=== PATIENT | female | born 1950 | race Caucasian/White ===

== ENCOUNTER 2018-11-01 00:31 | Outpatient (CLI) | payer BC, SELFPAY ==
--- NOTE | 2018-11-01 12:15 | DI.MAMMO_ITS ---
SYMPTOMS/DIAGNOSIS: SCREENING, Z12.31 MAMMOGRAMS: Mammograms were interpreted according to the usual protocol including computer analysis with CAD system, tomosynthesis and C view imaging. The breast tissue is of moderate radiodensity with scattered fibronodular densities bilaterally. There is no dominant mass. There are no suspicious calcifications and there has been no significant interval change when compared with prior images. SUMMARY: No evidence of malignancy, category 1. Yearly screening mammography is recommended. Breast density category B. SA ASSESSMENT OF FINDINGS: Negative. Category 1. Patient will receive a letter notifying them of these results. BI-RADS category B. There are scattered areas of fibroglandular density.
== END 2018-11-01 00:51 ==
PROVIDERS: PCP Internal Medicine; Visit Provider Nurse Practitioner Family
DX: Z12.31 Encounter for screening mammogram for malignant neoplasm of breast (principal)
CPT/HCPCS: 77063; 77067

== ENCOUNTER 2018-12-05 10:28 | Outpatient (REF) | payer BC, SELFPAY ==
[2018-12-05 13:16] LABS: Anion Gap 11.1 mmol/L (3-11); BUN 12 mg/dL (7-18); CO2 26.9 mmol/L (21.0-32.0); CREATININE 0.46 mg/dL (0.55-1.02); Calcium 9.2 mg/dL (8.5-10.1); Calculated LDL 165 mg/dL; Chloride 103 mmol/L (98-107); Cholesterol 254 mg/dL (50-200); Glucose 95 mg/dL (70-100); HDL Cholesterol 70 mg/dL (40-60); Potassium 3.8 mmol/L (3.5-5.1); Sodium 141 mmol/L (136-145); Triglyceride 96 mg/dL (30-150)
== END 2018-12-05 10:48 ==
LOC: NCHCN 10:28
PROVIDERS: PCP Internal Medicine; Visit Provider Internal Medicine
DX: I10 Essential (primary) hypertension (principal); F41.9 Anxiety disorder, unspecified; M79.10 Myalgia, unspecified site; Z00.00 Encounter for general adult medical examination without abnormal findings
CPT/HCPCS: 80048; 80061; 83721

== ENCOUNTER 2020-08-14 01:38 | Outpatient (CLI) | payer BC, SELFPAY ==
--- NOTE | 2020-08-14 09:48 | DI.RAD_ITS ---
EXAM: XR HIP PELVIS ADULT BL CLINICAL HISTORY: BILAT HIP OA,M16.0. TECHNIQUE: 2D digital imaging was performed. COMPARISON: No exams were available for comparison FINDINGS: No evidence of pelvic or hip fracture. There are significant osteoarthritic degenerative changes in both hip joints with joint space narrowing and degenerative subarticular cysts on both sides the join t. Findings are more severe on the right side. Moderate-severe on the left side. No other signific ant osseous findings. IMPRESSION: Bilateral hip joint osteoarthritis, more severe on the right side. DATA REPOSITORY: RADIATION DOSE DELIVERED:
== END 2020-08-14 01:58 ==
PROVIDERS: PCP Internal Medicine; Visit Provider Internal Medicine
DX: M16.0 Bilateral primary osteoarthritis of hip (principal)
CPT/HCPCS: 73521

== ENCOUNTER 2020-10-27 01:06 | Outpatient (CLI) | payer BC, SELFPAY ==
--- NOTE | 2020-10-27 09:40 | DI.MAMMO_ITS ---
Exam(s) MAMMO SCREENING EXAM: MAMMO SCREENING CLINICAL HISTORY: screening. TECHNIQUE: Bilateral full field digital CC and MLO mammographic images were obtained with 3D tomosyn thesis and utilizing computer aided detection (CAD). COMPARISON: Prior mammograms dating back to 2011, the most recent being October 2018. FINDINGS: There has been no significant change in appearance and distribution of the fibroglandular tissue. There are no obvious new spiculated masses nor malignant appearing microcalcification groups. There is no significant architectural distortion nor skin thickening-retraction. IMPRESSION: No radiographic evidence of malignancy. BI-RADS Category 1 - Negative Breast Density - Category B - Scattered areas of fibroglandular density Breast density Category C or D implies that the patient has dense breast tissue. Dense breast tissue can make it harder to find cancer on a mammogram. Dense breast tissue is also associated with an incr eased risk of breast cancer. This information about the result of the mammogram report was provided to the patient to raise their awareness. Use this report when you speak with the patient about their risks for breast cancer, which includes their family history. At that time, you may recommend additional screening tests (Ultrasoun d or MRI) as these tests may add significant information. A negative radiographic report should not delay biopsy if a dominant or clinically suspicious mass is present. Up to ten percent of cancers are not identified on mammography. A negative report may reinforce clinical impression. Adenosis and dense breasts may obscure an underlying neoplasm. False positive reports average 6 to 10%. Patient will receive a letter notifying them of these results.
== END 2020-10-27 01:26 ==
PROVIDERS: PCP Internal Medicine; Visit Provider Nurse Practitioner Family
DX: Z12.31 Encounter for screening mammogram for malignant neoplasm of breast (principal)
CPT/HCPCS: 77063; 77067

== ENCOUNTER 2020-11-18 16:58 | Outpatient (REF) | payer BC, SELFPAY ==
[2020-11-18 14:31] LABS: Anion Gap 10.4 mmol/L (3-11); BUN 16 mg/dL (7-18); CO2 27.6 mmol/L (21.0-32.0); CREATININE 0.5 mg/dL (0.55-1.02); Calcium 9.7 mg/dL (8.5-10.1); Chloride 103 mmol/L (98-107); Glucose 106 mg/dL (74-106); Sodium 141 mmol/L (136-145)
== END 2020-11-18 16:59 | disposition home or self-care (01) ==
LOC: NCHCN 16:58
PROVIDERS: PCP Internal Medicine; Visit Provider Internal Medicine
DX: I10 Essential (primary) hypertension (principal)
CPT/HCPCS: 80048

== ENCOUNTER 2021-01-05 09:45 | Outpatient (CLI) | payer BC, SELFPAY ==
--- NOTE | 2021-01-05 09:15 | DI.RAD_ITS ---
Exam(s) XR PELVIS AP EXAM: XR PELVIS AP CLINICAL HISTORY: right hip DJD. TECHNIQUE: 2D digital imaging was performed. COMPARISON: CR XR HIP PELVIS ADULT BL from 08/14/2020 FINDINGS: No fractures. Advanced osteoarthritic degenerative changes in the right hip again noted including ad vanced joint space narrowing and degenerative subarticular cysts on both sides the joint, similar to previous. Also significant degenerative changes in the opposite-left hip with advanced joint space narrowing wilburn periorly and degenerative subarticular cysts. IMPRESSION: As above. No radiographic change compared to 08/14/2020. DATA REPOSITORY: RADIATION DOSE DELIVERED:
== END 2021-01-05 09:46 | disposition home or self-care (01) ==
LOC: DIORS 09:45
PROVIDERS: PCP Internal Medicine; Visit Provider Physician Assistant
DX: M16.11 Unilateral primary osteoarthritis, right hip (principal)
CPT/HCPCS: 72170

== ENCOUNTER 2021-03-02 02:53 | Outpatient (CLI) | payer BC, SELFPAY ==
[2021-03-02 10:11] LABS: HCT 38.5 % (36.0-46.0); HGB 12.7 g/dL (11.2-15.7); MCH 31.4 pg (27.0-33.0); MCV 95.3 fL (80-95); MPV 8.6 fL (8.0-11.0); Platelet Count 226 10^3/uL (130-400); RBC 4.04 10^6/uL (3.93-5.22); RDW 11.9 % (11.7-14.6); RDW-SD 41.4 fL; WBC 4.93 10^3/uL (4.4-10.8)
[2021-03-02 11:11] LABS: Anion Gap 8.4 mmol/L (3-11); BUN 15 mg/dL (7-18); CO2 30.6 mmol/L (21.0-32.0); CREATININE 0.7 mg/dL (0.55-1.02); Calcium 9.5 mg/dL (8.5-10.1); Chloride 102 mmol/L (98-107); Glucose 96 mg/dL (74-106); Potassium 4.4 mmol/L (3.5-5.1); Sodium 141 mmol/L (136-145)
[2021-03-02 12:51] LABS: Source Nasal/Nares
[2021-03-02 20:55] LABS: COVID-19 PCR Negative (Negative)
== END 2021-03-02 02:54 | disposition home or self-care (01) ==
LOC: LBO 02:53
PROVIDERS: PCP Internal Medicine; Visit Provider Student in an Organized Health Care Education/Training Program
DX: M25.551 Pain in right hip (principal); M16.11 Unilateral primary osteoarthritis, right hip; Z20.822 Contact with and (suspected) exposure to COVID-19; Z01.818 Encounter for other preprocedural examination; Z01.812 Encounter for preprocedural laboratory examination
CPT/HCPCS: 36415; 80048; 85027; 86850; 86900; 86901; 87635

== ENCOUNTER 2021-03-02 03:11 | Outpatient (CLI) | payer BC, SELFPAY ==
--- NOTE | 2021-03-02 09:45 | RT.EKG_ITS ---
APPROVED REPORT Exam: Resting ECG Reason for Exam: surgery 03/04/21 Patient Location: O HR:69 bpm ECG Measurements Heart Rate 69 AXIS ND 165 P 61 QRSd 94 QRS 0 QT 409 T 40 QTc 439 Conclusion Sinus rhythm...normal P axis, V-rate 60- 99
== END 2021-03-02 03:12 | disposition home or self-care (01) ==
PROVIDERS: PCP Internal Medicine; Visit Provider Student in an Organized Health Care Education/Training Program
DX: Z01.810 Encounter for preprocedural cardiovascular examination (principal)
CPT/HCPCS: 93005; 93010

== ENCOUNTER 2021-03-04 05:59 | Day surgery (SDC) | payer BC, SELFPAY ==
[2021-03-04] VITALS (8 sets, daily range): BP systolic 83–146; BP diastolic 60–89; PULSE 62–80; RESP 10–18; TEMP 36.2–36.8; O2SAT 94–99; BMI 25.4
--- NOTE | 2021-03-04 05:07 | W.ANESPRE ---
General Info Date of Service Date Performed: 03/04/21 Height: 5 ft 3 in Weight: 65.317 kg Body Mass Index (BMI): 25.4 Surgical Procedure: Operation Date: 03/04/21 08:05 Proposed Procedures Side Surgeon p Hip Total Hip Anterior Right Mick Perez MD Meds Allergies and Home Medications Allergies Allergy/AdvReac Type Severity Reaction Status Date / Time Penicillins Allergy Intermediate UNSURE Verified 03/04/21 06:22 Home Medication Medication Instructions Recorded hydrochlorothiazide 12.5 mg PO DAILY tab-cap 04/21/17 clobetasol 0.05 % topical ointment 1 applic TOPICAL PRN #15 g 10/03/20 ibuprofen 200 mg tablet 600 mg PO Q6H PRN tab 12/12/20 melatonin 10 mg PO HS PRN 03/04/21 Current Visit Medications: Current Medications Generic Name Dose Route Start Last Admin Trade Name Freq PRN Reason Stop Dose Admin Acetaminophen 1,000 mg 03/04/21 06:00 Acetaminophen 500 Mg Tab PO 03/04/21 16:00 PREOP LEON Celecoxib 400 mg 03/04/21 06:00 Celecoxib 200 Mg Cap PO 03/04/21 16:00 PREOP LEON Tranexamic Acid 1,000 mg/ 60 mls @ 360 mls/hr 03/04/21 06:00 Sodium Chloride IV 03/04/21 16:00 PREOP LEON Ringer's Solution 1,000 mls @ 80 mls/hr 03/04/21 06:00 IV 04/02/21 23:59 INFUSION LEON Cefazolin Sodium/Dextrose 2 gm in 50 mls @ 100 mls/hr 03/04/21 06:00 Ancef Duplex IVPB 04/02/21 23:59 PREOP LEON IV Miscellaneous Supplies 1 each 03/04/21 06:00 Iv Access IV 04/02/21 23:59 DIRECTED LEON Sodium Chloride 0 ml 03/04/21 06:00 Normal Saline Flush 10 Ml Syr IV 04/02/21 23:59 PRN PRN Sodium Chloride 0 ml 03/04/21 06:00 Normal Saline 10 Ml Vial IJ 04/02/21 23:59 DIRECTED PRN Sterile Water 0 ml 03/04/21 06:00 Water,Injection,Sterile 10 Ml Vial IJ 04/02/21 23:59 DIRECTED PRN PFSH Active Problems Active Problems: Problem Status Onset Code Trigger finger, right ring finger M65.341 Osteoarthritis of left hip M16.12 Osteoarthritis of right hip M16.11 Diverticulosis Lichen sclerosus Hypertension Medical History Medical History Diverticulosis Hypertension Lichen sclerosus Surgical History Surgical History Colonoscopy - IV Sedation (09/21/16) Trigger finger, right ring finger Tobacco Smoking/Tobacco Use Status: Former Tobacco Use Tobacco: How many years used: 30 Alcohol Alcohol Intake: current Alcohol intake frequency: a few times a week Alcohol type: wine Substance Use Substance use: Never Substance use type: does not use Prental History History 2 Para 0 Hx # Term Pregnancies Multiple births Hx # Pregnancies Ectopic pregnancies AB induced Hx Number of Living Children AB spontaneous Vital Signs and Lab Results Vital Signs Comment Vital Signs Comment:: Temp Pulse Resp BP Pulse Ox 36.8 C 67 18 146/89 H 98 03/04/21 06:29 03/04/21 06:29 03/04/21 06:29 03/04/21 06:29 03/04/21 06:29 Lab Results Blood Type / Crossmatch: Patient ABO/Rh A Positive 03/02/21 10:05 03/02/21 Antibody Screen NEGATIVE 03/02/21 10:05 03/02/21 Complete Blood Count: White Blood Count 4.93 10^3/uL (4.4-10.8) 03/02/21 10:05 03/02/21 Red Blood Count 4.04 10^6/uL (3.93-5.22) 03/02/21 10:05 03/02/21 Hemoglobin 12.7 g/dL (11.2-15.7) 03/02/21 10:05 03/02/21 Hematocrit 38.5 % (36.0-46.0) 03/02/21 10:05 03/02/21 Platelet Count 226 10^3/uL (130-400) 03/02/21 10:05 03/02/21 Complete Metabolic Panel: Sodium Level 141 mmol/L (136-145) 03/02/21 10:05 03/02/21 Potassium Level 4.4 mmol/L (3.5-5.1) 03/02/21 10:05 03/02/21 Chloride Level 102 mmol/L (98-107) 03/02/21 10:05 03/02/21 Carbon Dioxide Level 30.6 mmol/L (21.0-32.0) 03/02/21 10:05 03/02/21 Blood Urea Nitrogen 15 mg/dL (7-18) 03/02/21 10:05 03/02/21 Creatinine 0.7 mg/dL (0.55-1.02) 03/02/21 10:05 03/02/21 Estimated GFR/1.73 m2 >= 60.00 (mL/min/1.73m2) 03/02/21 10:05 03/02/21 Calcium Level 9.5 mg/dL (8.5-10.1) 03/02/21 10:05 03/02/21 Glucose Level 96 mg/dL (74-106) 03/02/21 10:05 03/02/21 Liver Function Panel: No Data to Display Coagulation Panel: No Data to Display Cardiac Panel: No Data to Display Arterial Blood Gas: No Data to Display Venous Blood Gas: No Data to Display Pancreas Panel: No Data to Display Thyroid Panel: No Data to Display Infectious Disease: Coronavirus (COVID-19)(PCR) Negative (Negative) 03/02/21 10:30 03/02/21 Coronavirus 2019 Source Nasal/Nares 03/02/21 10:30 03/02/21 Blood Cultures: No Data to Display Toxicology Panel: No Data to Display Imaging and Studies Imaging and Studies EKG Summary: 02/2021: nsr Anesthesia Assessment and Plan Anesthesia History Personal History: No History of Anesthesia Complications Family History: No Family History of Anesthesia Complications Exercise Tolerance Exercise Tolerance: Metabolic Equivalents>4 Cardiac & Pulmonary Exam Cardiac Exam: Normal S1/S2 Heart Sounds Pulmonary Exam: Clear Bilateral Breath Sounds Airway Exam Known Difficult Airway: No Mallampati Class: 2 Mouth Opening: Normal (> 3cm) Thyromental Distance: Greater than 3 cm Neck Range of Motion: Full ROM Neck Circumference: Normal Teeth Condition: Normal Dentition ASA Classification ASA Score: ASA 2 Emergency Case?: No NPO Status NPO Status: NPO Clears >2 hours, Solids >8 hours Anesthesia Plan Resuscitation Status: Full Code Anesthesia Technique: Spinal Anesthesia Airway Planned: Natural Airway Monitors Used: Standard Monitors Preoperative Comments:: 70 yo female for VANCE. Sig PMHx: HTN (HCTZ), former smoker, occ EtOH. EKG 03/03/21: NSR. Plan: Spinal.
[2021-03-04] MEDS: Acetaminophen 500 MG TAB 1000 MG PO (06:48)
[2021-03-04] MEDS: Celecoxib 200 MG CAP 400 MG PO (06:48)
[2021-03-04] MEDS: Lactated Ringers 1,000 ML 80 ML IV (06:55)
--- NOTE | 2021-03-04 06:58 | W.PM.DSUDISC ---
Documented by User: SANJIV Harrison 03/04/21 07:04 Discharge Plan Disposition Patient Disposition: HOME Condition: Stable Discharge Details Reason For Visit: Right VANCE Attending Provider: Mick Perez Primary Care Provider: Long Larkin Home Meds and New Rx's Prescriptions: Continued clobetasol 0.05 % ointment 1 applic Topical PRN Qty: 15 RF: 1 hydrochlorothiazide 12.5 MG capsule 12.5 mg PO DAILY RF: 0 melatonin 5 mg Tablet,Chewable 10 mg PO HS PRNRF: 0 Discontinued ibuprofen 200 mg tablet 600 mg PO Q6H PRNRF: 0 No Action acetaminophen [Tylenol Extra Strength] 500 mg tablet 500 mg PO Q6H PRN (Reason: postop pain) Qty: 90 RF: 0 aspirin 81 mg tablet,delayed release (DR/EC) 81 mg PO BID Qty: 60 RF: 0 celecoxib [Celebrex] 200 mg capsule 200 mg PO BID Qty: 60 RF: 0 oxycodone 5 mg tablet 5 mg PO Q4H MDD 30 PRN (Reason: breakthrough pain) Qty: 18 RF: 0 pantoprazole [Protonix] 40 mg tablet,delayed release (DR/EC) 40 mg PO DAILY Qty: 30 RF: 0 Discharge Instructions Additional Instructions: Total Hip Discharge Instructions Activity: The most important activity is to walk. You should try to take short walks a few times a day. You have no restrictions on movement or positioning, but do not try to force what you do. You will find some stiffness and weakness with hip flexion (lifting your knee). Do not try to strengthen this too early, continue to practice walking and stairs and this will come. - Outpatient physical therapy can be helpful to help return you to a normal gait and improve your flexibility and strength. This can start around 2 weeks. For some patients, it?s not necessary. Usually this is determined at the time of discharge or at the first post-operative visit. - You should wear the DAVID hose on both legs for 2 weeks. Dressing: Keep the surgical dressing in place for at least one week. After the first week it may be removed and replace with light gauze and tape or nothing. It may get wet after 3 days but avoid soaking the dressing. If it gets wet, just lightly pat dry. It is important to always keep some gauze between skin folds, especially when you are sitting. Spend some time with the wound exposed when you are lying flat as the incision does wrinkle onto itself. Medications: - You should take Tylenol and an anti-inflammatory Celebrex as your primary pain control medications. Please Discontinue Ibuprofen while using Celebrex. If the Celebrex is too expensive or not covered, please call the office for another alternative (Advil/Ibuprofen or Naproxen/Aleve). - You have been prescribed a stronger pain medication Oxycodone for breakthrough pain, take as needed as prescribed. - You have also been prescribed a stomach acid reduction agent Pantoprozole to help reduce stomach acid and reflux. - You will be taking Aspirin 81mg twice a day for DVT prevention unless instructed otherwise. - If you have constipation you should take Colace or Miralax (both [id number]). It takes most people 3-4 days to have a bowel movement. Follow-up: 2 weeks If you have any acute concerns or questions, please do not hesitate to contact the office at [phone]. You may contact Dr. Perez with any questions after hours through the hospital at [phone] or on his cell phone at [phone]. Stand Alone Forms: Anesthesia Discharge Inst., Anes.Nerve Block Instructions Referrals: Mick Perez MD [ [facility] STAFF PHYSICIAN] - 03/19/21 10:30 am Equipment/Supplies: Walker Activity:: Activity as Tolerated Remove Dressings/Wound Care:: Do Not Remove Shower/Bathe:: 72 hours Diet:: As Tolerated Discharge Orders Discharge Orders: Discharge Order (Routine); Ordered 03/04/21 Ordered By: Claudia Manriquez DS: Diagnosis Discharge Diagnosis (1) Osteoarthritis of right hip: Status: Chronic Documented by User: Mick Perez MD 03/04/21 12:19 Discharge Plan Disposition Patient Disposition: HOME Condition: Stable Discharge Details Reason For Visit: Right VANCE Attending Provider: Mick Perez Primary Care Provider: Long Larkin Home Meds and New Rx's Prescriptions: Continued clobetasol 0.05 % ointment 1 applic Topical PRN Qty: 15 RF: 1 hydrochlorothiazide 12.5 MG capsule 12.5 mg PO DAILY RF: 0 melatonin 5 mg Tablet,Chewable 10 mg PO HS PRNRF: 0 Discontinued ibuprofen 200 mg tablet 600 mg PO Q6H PRNRF: 0 No Action acetaminophen [Tylenol Extra Strength] 500 mg tablet 500 mg PO Q6H PRN (Reason: postop pain) Qty: 90 RF: 0 aspirin 81 mg tablet,delayed release (DR/EC) 81 mg PO BID Qty: 60 RF: 0 celecoxib [Celebrex] 200 mg capsule 200 mg PO BID Qty: 60 RF: 0 oxycodone 5 mg tablet 5 mg PO Q4H MDD 30 PRN (Reason: breakthrough pain) Qty: 18 RF: 0 pantoprazole [Protonix] 40 mg tablet,delayed release (DR/EC) 40 mg PO DAILY Qty: 30 RF: 0 Discharge Instructions Additional Instructions: Total Hip Discharge Instructions Activity: The most important activity is to walk. You should try to take short walks a few times a day. You have no restrictions on movement or positioning, but do not try to force what you do. You will find some stiffness and weakness with hip flexion (lifting your knee). Do not try to strengthen this too early, continue to practice walking and stairs and this will come. - Outpatient physical therapy can be helpful to help return you to a normal gait and improve your flexibility and strength. This can start around 2 weeks. For some patients, it?s not necessary. Usually this is determined at the time of discharge or at the first post-operative visit. - You should wear the DAVID hose on both legs for 2 weeks. Dressing: Keep the surgical dressing in place for at least one week. After the first week it may be removed and replace with light gauze and tape or nothing. It may get wet after 3 days but avoid soaking the dressing. If it gets wet, just lightly pat dry. It is important to always keep some gauze between skin folds, especially when you are sitting. Spend some time with the wound exposed when you are lying flat as the incision does wrinkle onto itself. Medications: - You should take Tylenol and an anti-inflammatory Celebrex as your primary pain control medications. Please Discontinue Ibuprofen while using Celebrex. If the Celebrex is too expensive or not covered, please call the office for another alternative (Advil/Ibuprofen or Naproxen/Aleve). - You have been prescribed a stronger pain medication Oxycodone for breakthrough pain, take as needed as prescribed. - You have also been prescribed a stomach acid reduction agent Pantoprozole to help reduce stomach acid and reflux. - You will be taking Aspirin 81mg twice a day for DVT prevention unless instructed otherwise. - If you have constipation you should take Colace or Miralax (both [id number]). It takes most people 3-4 days to have a bowel movement. Follow-up: 2 weeks If you have any acute concerns or questions, please do not hesitate to contact the office at [phone]. You may contact Dr. Perez with any questions after hours through the hospital at [phone] or on his cell phone at [phone]. Stand Alone Forms: Anesthesia Discharge Inst., Nirav.Nerve Block Instructions Referrals: Mick Preez MD [ [facility] STAFF PHYSICIAN] - 03/19/21 10:30 am Equipment/Supplies: Walker Activity:: Activity as Tolerated Remove Dressings/Wound Care:: Do Not Remove Shower/Bathe:: 72 hours Diet:: As Tolerated Discharge Orders Discharge Orders: Discharge Order (Routine); Ordered 03/04/21 Ordered By: Claudia Manriquez
--- NOTE | 2021-03-04 07:00 | DI.RAD_ITS ---
Exam(s) XR HIP RT IN OR EXAM: XR HIP RT IN OR CLINICAL HISTORY: Osteoarthritis of right hip TECHNIQUE: 2D and realtime digital imaging was performed. CONTRAST MATERIAL: Refer to procedure report. COMPARISON: CR XR PELVIS AP from 01/05/2021 CR XR PELVIS AP from 01/05/2021 FINDINGS: Fluoroscopy was provided for Dr. Perez during the performance of a right total hip replacement. Please refer to the procedure report for complete details. Ka,r=3.14 mGy IMPRESSION: RADIATION DOSE DELIVERED:
--- NOTE | 2021-03-04 07:14 | HPE_ITS ---
Date of service: 03/04/21 Time of Service: 07:14 Assessment and Plan Assessment and plan (1) Osteoarthritis of right hip: Status: Chronic Assessment and plan: Rachel is a 70-year-old active female who has severe arthritis of the right hip. She has failed a host of nonoperative treatment and is here today for total hip replacement. Please see previous notes for complete details of all the nonoperative treatments employed as well as more complete discussion of the surgery itself. Once again this morning I reviewed hip replacement with her. I had a long discussion in regards to surgical replacem ent of the hip. I went over in detail the possible complications of hip replacement. These include but are not limited to bleeding, infection, pain, stiffness, weakness, damage to nerves (especially the lateral femoral cutaneous nerve), damage to vessels, damage to muscle and tendon, fracture, leg length inequality, wound healing complications, instability, dislocation, and blood clot. Questions were answered. I again expressed that this is a surgery to improve functional quality of life. After a review of the presented information and risks, Rachel desired to proceed. Qualifiers: Osteoarthritis type: primary Qualified Code(s): M16.11 - Unilateral primary osteoarthritis, right hip History of Present Illness History of Present Illness Chief Complaint: Right hip DJD Narrative: Rachel is a 70-year-old who has known hip arthritis about the right hip. She has been seen previously for this right hip and treated with a host of nonoperative treatments. She has been considering hip replacement for some time and now desires to proceed. She was previously scheduled and seen in anticipation for this with a history of physical performed January 05. Please reference that history and physical for any other details but there has been no change. She is now ready for a replaced on the right side today. She denies any sick contacts. She has tested negative for COVID-19. She denies chest pain or shortness of breath. Review of Systems All systems reviewed & are unremarkable except as noted in HPI and below PFSH Medical History Diverticulosis Hypertension Lichen sclerosus Surgical History Colonoscopy - IV Sedation (09/21/16) Trigger finger, right ring finger Family History Father Heart disease Other Osteoporosis Social History Smoking/Tobacco Use Status: Former Tobacco Use Quit Date: 10/13/05 Tobacco: How many years used: 30 Smoking risk assessment performed?: Yes Alcohol Intake: current Alcohol Intake frequency: a few times a week Alcohol type: wine Drug use: Never Substance use type: does not use Current gender identity: female Do you feel safe at home: Yes Do you feel safe in your relationship?: Yes History History 2 Para 0 Hx # Term Pregnancies Multiple births Hx # Pregnancies Ectopic pregnancies AB induced Hx Number of Living Children AB spontaneous Meds Allergies and Home Medications Allergies Allergy/AdvReac Type Severity Reaction Status Date / Time Penicillins Allergy Intermediate UNSURE Verified 03/04/21 06:22 Home Medications Medication Instructions Recorded Confirmed Type hydrochlorothiazide 12.5 mg PO DAILY tab-cap 04/21/17 03/04/21 History clobetasol 0.05 % topical ointment 1 applic TOPICAL PRN #15 g 10/03/20 03/02/21 Rx acetaminophen [Tylenol Extra 500 mg PO Q6H PRN #90 tab 03/04/21 Rx Strength] aspirin 81 mg PO BID #60 tab 03/04/21 Rx celecoxib [Celebrex] 200 mg PO BID #60 cap 03/04/21 Rx melatonin 10 mg PO HS PRN 03/04/21 03/04/21 History oxycodone 5 mg PO Q4H PRN #18 tab 03/04/21 Rx pantoprazole [Protonix] 40 mg PO DAILY #30 tab 03/04/21 Rx Exam Const General: cooperative, healthy appearing, comfortable and no acute distress Resp Auscultation: clear to auscultation bilaterally Cardio Rate: regular rate Rhythm: regular rhythm Results Last Vital Signs Temp 36.8 C 03/04/21 06:29 Pulse 67 03/04/21 06:29 Resp 18 03/04/21 06:29 BP 146/89 H 03/04/21 06:29 Pulse Ox 98 03/04/21 06:29
[2021-03-04] MEDS: ceFAZolin 2 GM/50 ML BAG IVPB (07:50)
[2021-03-04] MEDS: Ketorolac 30 MG/ML VIAL (09:10)
[2021-03-04] MEDS: Bupivacaine 0.25% Pres-Free 30 ML VIAL (09:10)
[2021-03-04] MEDS: oxyCODONE 5 MG TAB PO (10:22)
--- NOTE | 2021-03-04 10:22 | ROE_ITS ---
Date of service: 03/04/21 Time of Service: 09:22 Operative Note Operative Note DATE OF PROCEDURE: 03/04/21 PRE-OP DIAGNOSIS: Right Hip Osteoarthritis POST-OP DIAGNOSIS: same PROCEDURE: Right Anterior Total Hip Arthroplasty with Intraoperative Navigation SURGEON: Mick Perez INDUCTION MACHINE OPERATOR: Claudia Manriquez ANESTHESIA TYPE: Spinal Refer to Anesthesia Record ESTIMATED BLOOD LOSS: 200 PATHOLOGY: none sent TOURNIQUET TIME: 0 COMPLICATIONS: None Patient was transported to: PACU Patient's condition: stable Implants: 1. Depuy [place] Acetabular Component, 48mm 2. Depuy Acetabular Liner, [id number] 3. Depuy Corail Standard Collared Femoral Stem, Size 11 4. Depuy Altrx Ceramic Femoral Head, Size 32+5mm Indications: I have seen Rachel in clinic for symptoms of hip arthritis, confirmed with radiographic findings. She has exhausted nonoperative methods and was having significant limitations in daily function and desired better function and less pain. I discussed the technical details of a hip replacement. I explained the risks of the procedure to include, but not limited to, bleeding, infection, pain, stiffness, fracture, damage to nerves and vessels, damage to muscles and tendons, loosening, instability, leg length inequality, need for repeat procedure, blood clot and cardiopulmonary demise. Despite these risks, Rachel elected to proceed. Findings: There was significant signs of arthritis throughout the hip. There was deformity of the femoral head. There was a large floor osteophyte. Procedure Description: Rachel was greeted in the preoperative holding area where the correct side was identified and marked. The consent was reviewed with the patient and signed. The history and physical was updated. All questions were answered. She was taken back to the operating room. A spinal anesthestic was then administered. The feet were wrapped with cast padding and Coban and then placed into the boot liners and then into the boots. Care was taken to protect the skin and make sure the heels were fully down and the boots were stable. The patient was then positioned onto the HANA table. Both legs were held in a neutral position. SCDs were applied. The patient was then slid down onto a peroneal post. Prophylactic antibiotics in the form of Cefazolin were administered. 1g of Tranxemic Acid was given intravenously within 30 minutes of incision. The right leg was then prepped with Chloraprep and draped in a standard fashion. A second prep with Chloraprep was performed prior to placement of a shower-curtain type drape with Iodine impregnated skin protection. A timeout to confirm correct identity, side and site, procedure, allergies, anesthesia, and medical concerns was performed. An obliquely oriented incision was made starting lateral to the ASIS and running distal over the Tensor Fascia Jazzmine (TFL) muscle belly toward the fibular head, approximately 10cm. The skin and soft tissue was dissected sharply, through Adina?s fascia, and to the fascia of the TFL. With the fascia and superior border of the IT band identified, the fascia was incised with a new knife just above any perforators from the IT band. The TFL muscle belly was bluntly dissected away from the fascia and moved laterally. The fat between TFL and rectus was identified to ensure the dissection was not within the TFL. Blunt dissection created space between abductors and the capsule and retractor was placed over the lateral femoral neck. The fibers of the rectus femoris tendon were identified and these were freed from the anterior capsule. A second cobra retractor was placed around the medial femoral neck. The TFL was further retracted laterally to show the deep fascia. Careful dissection through this layer identified three main crossing vessels of the lateral femoral circumflex. These were cauterized in multiple locations and then cut without any noticeable bleeding. The TFL was further released bluntly from the deep fascia to expose anterior hip capsule and fat The Russell orthopaedic retractor was then placed beneath the TFL and against sartorius and medial soft tissues to protect and retract the soft tissues. A T-capsulotomy was then performed starting at the superior lateral acetabulum and moving distally to the intertrochanteric ridge. These capsular flaps were tagged with a No. 1 Ethibond and elevated from within. The capsular flaps were released to the shoulder of the lateral neck and to the lesser trochanter to give excellent visualization of the proximal femur. A neck osteotomy was performed using an oscillating saw based on preoperative templates. This cut started in the shoulder and of the lateral neck and exited medially. The saw was at all times directed medially to avoid injury to the greater trochanter. Gross traction was applied to the leg and the osteotomy opened. The femoral head was removed with a corkscrew, making sure to protect the TFL on its exit. Traction was released after head removal. This was measured on the back table to determine the starting reamer size. Portions of the rectus obscuring visualization were minimally elevated off the superior acetabulum. An anterior retractor was placed over the anterior wall between capsule and labrum and attached to the Gripper retraction system. The femur was rotated to 90 degrees and medial capsule was fully released until the lesser trochanter was palpable and visible; the femur was returned to 30 degrees. A posterior retractor was placed similarly between capsule and labrum. This provided excellent visualization. The contents of the cotyloid fossa were removed with electrocautery and the labrum was removed with a knife. There was a notable floor osteophyte. There was significant chondromalacia of the superior acetabulum. Acetabular reaming began with a 44mm reamer. This first reaming was directed anterior to posterior and medial to get down to the true floor. This was inspected and reamed until the true floor was reached. The anterior retractor was then released and entry and exit was provided by traction on the capsular flaps. I then reamed sequentially up to a 48mm reamer where good fit was obtained. The larger reamers were oriented based on anatomical reference of the anterior and lateral beasley to ensure proper abduction and anteversion. Positioning and size was confirmed with the fluoroscopy. A 48mm Depuy [place] acetabular component was selected. The acetabulum was reamed around the periphery with the selected acetabular size to prevent a rim fit. The deep tissues were irrigated. The acetabular component was then impacted in a position of about 40-45 degrees of abduction and 15-20 degrees of anteversion, using the patient?s anatomy as the ultimate landmark. Fluoroscopy was used to confirm this. There was excellent registered nurse nursery of the acetabular component and the inserting handle was removed. The acetabular liner, Depuy [id number] polyethylene liner, was inserted and lined up with the tines of the acetabular component. There was no soft tissue interposition. The liner was then impacted into position and confirmed to be well-seated. A portion of the valentino-articular cocktail was then injected around the acetabulum into the capsule and periosteum. This cocktail consisted of 50cc of 0.25% Bupivicaine and 20cc of Exparel and 30mg of Ketorolac. The leg was rotated to 120 degrees. Any remaining medial capsule was released until the lesser trochanter was easily palpable. A retractor was placed medially. The lateral capsule was further released into the shoulder to allow access to the greater trochanter. A Fowler retractor was placed over the greater trochanter which allowed the trochanter to flip in front of the capsule for excellent exposure. The leg was brought down into maximal extension and 20 degrees of adduction while ensuring there was no impingement on the acetabulum. Any remnant capsule within the trochanter was released. Piriformis and obturator externis were identified and protected. There was excellent access to the proximal femur. The lateral neck remnant was removed with a rongeur. A blunt canal probe was used to identify the canal and trajectory for later broaching. A box osteotome initiated the broach course. A small curved rasp and a curved curette were used to work laterally. Broaching then began with a size 8 Corail broach. This was inserted manually around the trochanter and into the canal before mallet blows. The broach was seated to a few millimeters below the cut level based on the neck cut and the preoperative template. Sequential broaching was continued with the Scroll.inse pneumatic broaching device until a tight fit was obtained with good rotational control of the femur. A trial short neck was inserted along with a +5 trial head. The leg was brought out of extension and adduction and then reduced with traction and internal rotation. The leg was stable anteriorly in a position of 30 degrees of extension and 90 degrees of external rotation. Fluoroscopy was used to ensure there was no fracture and the stem was seated well. Leg lengths were checked with an AP pelvis and pelvic reference points. Cubito navigation system was used to confirm appropriate positioning and leg length and offset. This seemed to undershoot the leg length and total offset. Thus going to a standard neck improved this. Once content with the desired offset and leg lengths, the leg was brought back into extension, external rotation and adduction. The periosteum and surrounding tissue was injected with remaining portion of the valentino-articular cocktail. The proximal femur was irrigated as well as the deep tissues. The Depuy [place] standard collared stem, size 11, was then manually inserted into the proximal femur making sure to control rotation. It was then malleted into position with light blows, giving breaks to allow bone expansion and decrease risk of fracture. The selected Depuy Altrx Ceramic Head, size 32+5mm, was then placed onto the clean and dry trunnion and secured with impaction onto the tapered fit. The leg was brought back out of extension and adduction and reduced with traction and internal rotation. Stability was confirmed with no shuck at 90 degrees of external rotation and 30 degrees of extension. No impingement through range of motion arc. Final x-ray images were obtained with fluoroscopy to confirm adequate positioning and no intraoperative fracture. The deep tissues were thoroughly irrigated with Irrisept chlorhexadine solution. The capsule was then reapproximated with the previously placed Ethibond sutures. The TFL fascia was finally closed with a No. 2 Stratafix, barbed suture. Deep tissues were then reapproximated with 0 Vicryl and a running 2-0 Vicryl. The skin was closed with a running 4-0 Monocryl in a subcuticular fashion. This was reinforced with skin glue. A Mepilex silver dressing was applied. At the end of the case, all counts were correct. Rachel was transferred to the hospital bed without difficulty and suffering no apparent complication. Rachel has a good prognosis. Physical therapy will start today and without restrictions, weight-bearing as tolerated. Aspirin 81mg BID will be used for DVT prophylaxis.
--- NOTE | 2021-03-04 11:42 | IN_ITS ---
Date of service: 03/04/21 Time of Service: 11:42 PT Notes Visit Reasons: Right [facility] Physical Therapy Day Surgery Initial Evaluation Date: 03/04/2021 Referring Doctor: SANJIV Harrison PT Orders: PT CONSULT: Status post Ortho surgery Precautions: WBAT on right LE with AD. Patient Profile/Admitting Diagnosis: Nkechi a 70-year-old female with primary osteoarthritis of the right hip and is status post right anterior total hip arthroplasty on postoperative day 0. PMHX: Medical History Diverticulosis Hypertension Lichen sclerosus Surgical History Colonoscopy - IV Sedation (09/21/16) Trigger finger, right ring finger Social History/Home Situation: Lives with at home with 2 steps to enter with one rail on 1 side. Set of spiral staircase leading to bedroom their house. Independent with all mobility ADLs prior to surgery. Equipment Owned/DME: FWW Subjective: Reports positional pain at 3?4/10 at rest and with weight bearing. But of mild dizziness that resolved after a few minutes. Objective: General Observation: Mepilex Ag over surgical incision. TEDS in B legs. Mental Status: Oriented x 4 Pain: 3?4/10 pain in the right hip ROM: Right Lower Extremity: Hip flexion WFL. Hip abduction WFL. Knee flexion WFL. Ankle dorsiflexion WFL. Ankle plantarflexion WFL. Left Lower Extremity: Hip flexion WFL. Hip abduction WFL. Knee flexion WFL. Ankle dorsiflexion WFL. Ankle plantarflexion WFL. Strength: Right Lower Extremity: Hip flexors 4/5. Hip abductors 4/5. Knee flexors 5/5. Knee extensors 4/5. Ankle dorsiflexors 5/5. Ankle plantarflexors 5/5. Left Lower Extremity:Hip flexors 5/5. Hip abductors 5/5. Knee flexors 5/5. Knee extensors 5/5. Ankle dorsiflexors 5/5. Ankle plantarflexors 5/5. Sensation: Intact as to pain and light pressure in bilateral lower extremities Bed Mobility/Transfers: Supine to sit standby assist Sit to stand standby assist Stand to sit standby assist Bed to chair standby assist Gait: Instructed patient on level surface ambulation 100 feet using front wheel walker with gait pattern requiring standby assist. Reported 3?4/10 that did not limit ambulation distance. Initially reported mild dizziness but resolved eventually. Balance: Static Sitting: Normal Dynamic Sitting: Normal Static Standing: Fair Dynamic Standing: Fair Special Tests: Mobility Limitations Standardized Measure [facility] AM-PAC 6 clicks Basic Mobility Inpatient Short Form: Raw Score: 23 CMS Score: 11% deficit Informed Consent/Education: Patient instructed in purpose of PT consult. Packet containing VANCE exercise protocol has been given to patient. Education and training on initial set of exercises that can be done at home have been completed with patient. Assessment: Rachel requires the use of a FWW for all mobility ADL performance to reduce fall risk and maximize independence at home. Patient presents with clinical signs and symptoms consistent with current/admitting diagnoses that have resulted to mobility limitations, gait instability, generalized weakness, and impairment of motor control as demonstrated by the following impairment level findings: 1. Decreased strength to right hip major muscle groups 2. Impaired standing balance 3. Limitation of joint range of motion in left knee Impairments are contributing to the following functional limitations: 1. Inability to safely ambulate without assistive device 2. Increase completion time for mobility ADL performance 3. Increased fall risk Patient is assessed as a 27109 moderate complexity based on the following: History: 70-year-old female with impairment level findings, functional limitations, and past medical history as indicated above Examination: Demonstrable impairment in strength, balance, and mobility level with underlying impairments and functional limitations as documented above Presentation: Evolving Decision Makin moderate complexity Goals: N/A. PT evaluation and 1-2 treatment sessions only for functional mobility training using recommended AD and for HEP instruction. Plan of Care/Treatment Plan: N/A. PT evaluation and 1-2 treatment session only for functional mobility training using recommended AD and for HEP instruction. DISCHARGE RECOMMENDATIONS: Home when medically cleared by orthopedics. To facilitate return to independent community ambulation without an assistive device. TREATMENT CODE/TIME: 37460 x 20 minutes, 51851 x 18 minutes beginning at 11:42 AM. Thank you for the opportunity to participate in the care of this patient. Ana Arriaga PT, DPT, CLT [facility] [place], [place]
--- NOTE | 2021-03-04 14:05 | W.ANESPOSTOP ---
Postoperative Evaluation Date, Time and Location Date Performed: 03/04/21 Time Performed: 09:50 Patient Location: PACU Vital Signs Most Recent Imported Vital Signs: Most Recent Vital Signs Temp Pulse Resp BP Pulse Ox 36.2 C L 66 18 138/82 97 03/04/21 11:20 03/04/21 11:20 03/04/21 11:20 03/04/21 11:20 03/04/21 11:20 Pain Score Most Recent Pain Score: Most Recent Pain Score Pain Level 4 03/04/21 11:20 Assessment Mental Status: Awake (Alert & Oriented to Patient Baseline) Airway and Respiratory Function: Patent airway with normal (patient baseline) respiratory exam Cardiovascular Function: Hemodynamically Stable Hydration Status: Adequately Hydrated Nausea & Vomiting: No Nausea or Vomiting Pain: Pain is tolerable per patient Peripheral Nerve Block: Regional nerve block not resolved at time of post operative discharge
== END 2021-03-04 12:55 | disposition home or self-care (01) ==
PROVIDERS: PCP Internal Medicine; Visit Provider Student in an Organized Health Care Education/Training Program
PROC: (CPT 27130; principal; 2021-03-04 07:45)
DX: M16.11 Unilateral primary osteoarthritis, right hip (principal)
CPT/HCPCS: 27130; 20985; 97162; 97530; 73501; J0690; J1100; J1885; J2001; J2250; J2405; J2704

== ENCOUNTER 2021-03-19 15:07 | Outpatient (CLI) | payer BC, SELFPAY ==
--- NOTE | 2021-03-19 10:30 | DI.RAD_ITS ---
Exam(s) XR HIP RT COMPLETE AP PELVIS EXAM: XR HIP RT COMPLETE AP PELVIS CLINICAL HISTORY: 1st post op R VANCE. TECHNIQUE: 2D digital imaging was performed. COMPARISON: CR XR PELVIS AP from 01/05/2021 FINDINGS: Satisfactory position alignment of components of the recently placed right hip prosthesis. No fractu re or loosening evident. Significant degenerative changes are again noted in the opposite-left hip. IMPRESSION: DATA REPOSITORY: RADIATION DOSE DELIVERED:
== END 2021-03-19 15:08 | disposition home or self-care (01) ==
LOC: DIORS 15:07
PROVIDERS: PCP Internal Medicine; Referring Provider Internal Medicine; Visit Provider Student in an Organized Health Care Education/Training Program
DX: Z96.641 Presence of right artificial hip joint (principal); Z47.1 Aftercare following joint replacement surgery; M16.12 Unilateral primary osteoarthritis, left hip
CPT/HCPCS: 73502

== ENCOUNTER → 2021-12-24 00:22 | Outpatient (CLI) | payer BC, SELFPAY ==
--- NOTE | 2021-12-24 | DI.DEXA_ITS ---
Exam(s) XR DEXA BONE DENSITY W/WO DEMAR EXAM: XR DEXA BONE DENSITY W/WO DEMAR CLINICAL HISTORY: OSTEOPENIA, M85.80 TECHNIQUE: Routine DEXA evaluation of the lumbar spine, hip, or forearm. COMPARISON: Prior DEXA scan March 2017 FINDINGS: Performed on a [employer] unit. Lateral image: No compression fracture evident. Lumbar Spine total T-score: -1.8 . Prior 2017 reading was -1.4. Hip total T-score:-1.9. Prior 2017 reading was -1.6. Independent reading at the level of the femoral neck yields at T-score of -1.7. Forearm total T-score: -1.5 IMPRESSION: Bone mineral density measures in the osteopenia range. Fracture risk is moderate. Note: Any spine fracture indicates 5x risk for subsequent spine fracture and 2x risk for subsequent h ip fracture. World Health Organization criteria for BMD interpretation classify patients: Normal...... T- Score at or above -1.0 Osteopenic... T- Score between -1.0 and -2.5 Osteoporosis... T-Score at or below -2.5
== END ==
PROVIDERS: PCP Internal Medicine; Visit Provider Internal Medicine
DX: Z13.820 Encounter for screening for osteoporosis (principal); M85.89 Other specified disorders of bone density and structure, multiple sites
CPT/HCPCS: 77080

== ENCOUNTER 2022-01-11 14:18 | Outpatient (CLI) | payer BC, SELFPAY ==
--- NOTE | 2022-01-11 13:52 | DI.RAD_ITS ---
Exam(s) XR HIP RT COMPLETE AP PELVIS EXAM: XR HIP RT COMPLETE AP PELVIS CLINICAL HISTORY: ANNUAL F/U R VANCE. TECHNIQUE: 2D digital imaging was performed. Two images were obtained. AP, lateral and oblique view s were obtained. COMPARISON: CR XR HIP RT COMPLETE AP PELVIS from 03/19/2021 FINDINGS: BONES: There are stable post operative changes present. No fracture or dislocation. JOINTS: The orthopedic hardware is in good position. Stable degenerative changes in the left hip. SOFT TISSUE: Normal. IMPRESSION: Stable postoperative changes. DATA REPOSITORY: RADIATION DOSE DELIVERED:
== END 2022-01-11 14:19 | disposition home or self-care (01) ==
LOC: DIORS 14:19
PROVIDERS: PCP Internal Medicine; Referring Provider Internal Medicine; Visit Provider Student in an Organized Health Care Education/Training Program
DX: Z96.651 Presence of right artificial knee joint (principal)
CPT/HCPCS: 73502

== ENCOUNTER → 2022-02-02 00:53 | Outpatient (CLI) | payer BC, SELFPAY ==
--- NOTE | 2022-02-02 08:30 | DI.MAMMO_ITS ---
Exam(s) MAMMO SCREENING EXAM: MAMMO SCREENING CLINICAL HISTORY: screening. TECHNIQUE: Bilateral full field digital CC and MLO mammographic images were obtained with 3D tomosyn thesis and utilizing computer aided detection (CAD). COMPARISON: Prior mammograms were reviewed, the most recent being October 2020.. FINDINGS: There has been no significant change in the appearance and distribution of the fibroglandular tissue. There are no CAD designations. There are no new spiculated masses nor malignant appearing microcalcification groups. There is no significant architectural distortion nor skin thickening-retraction. IMPRESSION: No radiographic evidence of malignancy. BI-RADS Category 1 - Negative Breast Density - Category B - Scattered areas of fibroglandular density Breast density Category C or D implies that the patient has dense breast tissue. Dense breast tissue can make it harder to find cancer on a mammogram. Dense breast tissue is also associated with an incr eased risk of breast cancer. This information about the result of the mammogram report was provided to the patient to raise their awareness. Use this report when you speak with the patient about their risks for breast cancer, which includes their family history. At that time, you may recommend additional screening tests (Ultrasoun d or MRI) as these tests may add significant information. A negative radiographic report should not delay biopsy if a dominant or clinically suspicious mass is present. Up to ten percent of cancers are not identified on mammography. A negative report may reinforce clinical impression. Adenosis and dense breasts may obscure an underlying neoplasm. False positive reports average 6 to 10%. Patient will receive a letter notifying them of these results.
== END ==
PROVIDERS: PCP Internal Medicine; Visit Provider Nurse Practitioner Family
DX: Z12.31 Encounter for screening mammogram for malignant neoplasm of breast (principal)
CPT/HCPCS: 77063; 77067

== ENCOUNTER 2022-05-24 03:22 | Outpatient (CLI) | payer BC, SELFPAY ==
[2022-05-24 12:45] LABS: HCT 37.7 % (36.0-46.0); HGB 12.6 g/dL (11.2-15.7); MCH 31.5 pg (27.0-33.0); MCHC 33.4 % (32.0-36.0); MCV 94 fL (80-95); Platelet Count 205 10^3/uL (130-400); RDW 11.9 % (11.7-14.6); RDW-SD 41.4 fL; WBC 5.21 10^3/uL (4.4-10.8)
[2022-05-24 13:14] LABS: Anion Gap 7.6 mmol/L (3-11); BUN 13 mg/dL (7-18); CO2 30.4 mmol/L (21.0-32.0); CREATININE 0.6 mg/dL (0.55-1.02); Calcium 9.9 mg/dL (8.5-10.1); Chloride 101 mmol/L (98-107); Glucose 91 mg/dL (74-106); Potassium 3.4 mmol/L (3.5-5.1); Sodium 139 mmol/L (136-145)
== END 2022-05-24 03:23 | disposition home or self-care (01) ==
LOC: LBO 03:22
PROVIDERS: PCP Internal Medicine; Visit Provider Student in an Organized Health Care Education/Training Program
DX: M16.12 Unilateral primary osteoarthritis, left hip (principal); Z01.818 Encounter for other preprocedural examination
CPT/HCPCS: 36415; 80048; 85027

== ENCOUNTER 2022-06-01 08:21 | Day surgery (SDC) | payer BC, SELFPAY ==
[2022-06-01] VITALS (9 sets, daily range): BP systolic 104–164; BP diastolic 60–109; PULSE 58–70; RESP 14–20; TEMP 36.2–36.6; O2SAT 94–99; BMI 25.9
--- NOTE | 2022-06-01 09:13 | W.PM.DS.N ---
Date of service: 06/01/22 Time of Service: 12:38 Discharge Plan Disposition Patient Disposition: Home Condition: Good Discharge Details Reason For Visit: Left hip DJD Attending Provider: Mick Perez Primary Care Provider: Long Larkin Home Meds and New Rx's Prescriptions: New acetaminophen 500 mg tablet 500 mg PO Q6H PRN (Reason: pain) Qty: 60 2RF aspirin 81 mg tablet,delayed release (DR/EC) 81 mg PO BID 30 Days Qty: 60 0RF celecoxib [Celebrex] 200 mg capsule 200 mg PO BID PRNQty: 60 0RF Rx Instructions: Take one tablet twice daily for pain and inflammation docusate sodium [Colace] 100 mg capsule 100 mg PO BID Qty: 30 0RF pantoprazole 40 mg tablet,delayed release (DR/EC) 40 mg PO DAILY 14 Days Qty: 14 0RF oxycodone 5 mg tablet 5 mg PO Q6H PRN (Reason: severe post-operative pain) Qty: 12 0RF Rx Instructions: Take one tablet up to every 6 hours as needed for severe pain Continued Gummies Children Multivitamin Tablet,Chewable 1 tab PO BID hydrochlorothiazide 12.5 MG capsule 12.5 mg PO DAILY melatonin 5 mg Tablet,Chewable 10 mg PO HS PRN Discharge Instructions Additional Instructions: Total Hip Discharge Instructions Activity: The most important activity is to walk. You should try to take short walks a few times a day. You have no restrictions on movement or positioning, but do not try to force what you do. You will find some stiffness and weakness with hip flexion (lifting your knee). Do not try to strengthen this too early, continue to practice walking and stairs and this will come. - Outpatient physical therapy can be helpful to help return you to a normal gait and improve your flexibility and strength. This can start around 2 weeks. For some patients, it?s not necessary. Usually this is determined at the time of discharge or at the first post-operative visit. - You should wear the DAVID hose on both legs for 2 weeks. Dressing: Keep the surgical dressing in place for at least one week. After the first week it may be removed and replace with light gauze and tape or nothing. It may get wet after 3 days but avoid soaking the dressing. If it gets wet, just lightly pat dry. It is important to always keep some gauze between skin folds, especially when you are sitting. Spend some time with the wound exposed when you are lying flat as the incision does wrinkle onto itself. Medications: - You should take Tylenol and an anti-inflammatory Celebrex as your primary pain control medications. If the Celebrex is too expensive or not covered, please call the office for another alternative (Advil/Ibuprofen or Naproxen/Aleve). - You have been prescribed a stronger pain medication Oxycodone for breakthrough pain, take as needed as prescribed. - You have also been prescribed a stomach acid reduction agent Pantoprozole to help reduce stomach acid and reflux. - You will be taking Aspirin 81mg twice a day for DVT prevention unless instructed otherwise. - If you have constipation you should take Colace (which has been prescribed) or Miralax (which is available for purchase [id number]). It takes most people 3-4 days to have a bowel movement. Follow-up: 2 weeks If you have any acute concerns or questions, please do not hesitate to contact the office at [phone]. You may contact Dr. Perez with any questions after hours through the hospital at [phone] or on his cell phone at [phone]. Referrals: Mick Perez MD [ [facility] STAFF PHYSICIAN] - Equipment/Supplies: Walker Activity:: Activity as Tolerated Remove Dressings/Wound Care:: Do Not Remove Shower/Bathe:: Cover Diet:: As Tolerated DS: Summary Time Spent with Patient providing and/or coordinating discharge services: Less than 30 minutes Status at Discharge Functional status at discharge: uses cane/walker Overall status at discharge: patient is progressing back to baseline Mental Status: mental status grossly normal Speech and Movement: speech and movement normal Mood: congruent mood Affect: normal affect Exam Psych Mental Status: mental status grossly normal Speech and Movement: speech and movement normal Mood: congruent mood Affect: normal affect DS: Data Vitals/I&O Vitals and I&O: Intake & Output 05/31/22 05/31/22 06/01/22 11:59 23:59 11:59 Weight 145 lb 15.983 oz PFSH All Active Problems Trigger finger, right ring finger (Acute) Osteoarthritis of left hip (Acute) Diverticulosis (Chronic) Lichen sclerosus (Chronic) Hypertension (Chronic) Surgical History Colonoscopy - IV Sedation (09/21/16) 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) 03/04/21 Family History Father Heart disease Other Osteoporosis Social History Smoking/Tobacco Use Status: Former Tobacco Use Quit Date: 10/13/05 Tobacco: How many years used: 30 Smoking risk assessment performed?: Yes Alcohol Intake: current Alcohol Intake frequency: a few times a week Alcohol type: wine Drug use: Never Substance use type: does not use Current gender identity: female Do you feel safe at home: Yes Additional Social history: Unable to assess privately History History 2 Para 0 Hx # Term Pregnancies Multiple births Hx # Pregnancies Ectopic pregnancies AB induced Hx Number of Living Children AB spontaneous Time Spent with Patient Time Spent with Patient: <45 minutes Time was spent: ordering medications,tests, procedures, counseling the patient and care coordination
[2022-06-01] MEDS: Acetaminophen 500 MG TAB 1000 MG PO (09:26)
[2022-06-01] MEDS: Celecoxib 200 MG CAP 400 MG PO (09:26)
--- NOTE | 2022-06-01 09:30 | W.ANESPRE ---
General Info Date of Service Date Performed: 06/01/22 Height: 5 ft 3 in Weight: 66.3 kg Body Mass Index (BMI): 25.9 Surgical Procedure: Operation Date: 06/01/22 11:05 Proposed Procedure Side Surgeon p Hip Total Hip Anterior Left Mick Perez MD Meds Allergies and Home Medications Allergies Allergy/AdvReac Type Severity Reaction Status Date / Time Penicillins Allergy Intermediate UNSURE Verified 06/01/22 09:01 Home Medication Medication Instructions Recorded hydrochlorothiazide 12.5 mg capsule 12.5 mg PO DAILY 04/21/17 melatonin 5 mg chewable tablet 10 mg PO HS PRN 03/04/21 pediatric multivitamin no.30 1 tab PO BID 01/11/22 (Gummies Children Multivitamin chewable tablet) acetaminophen 500 mg tablet 500 mg PO Q6H PRN pain #60 tabs 06/01/22 aspirin 81 mg tablet,delayed 81 mg PO BID 30 days #60 tabs 06/01/22 release celecoxib 200 mg capsule (Celebrex) 200 mg PO BID PRN #60 caps 06/01/22 docusate sodium 100 mg capsule 100 mg PO BID #30 caps 06/01/22 (Colace) oxycodone 5 mg tablet 5 mg PO Q6H PRN severe 06/01/22 post-operative pain #12 tabs pantoprazole 40 mg tablet,delayed 40 mg PO DAILY 14 days #14 tabs 06/01/22 release Current Visit Medications: Current Medications Generic Name Dose Route Start Last Admin Trade Name Freq PRN Reason Stop Dose Admin Acetaminophen 1,000 mg 06/01/22 06:00 06/01/22 09:26 Acetaminophen 500 Mg Tab PO 1,000 mg PREOP LEON Administration Acetaminophen 1,000 mg 06/01/22 14:00 Acetaminophen 500 Mg Tab PO TID LEON Aspirin 81 mg 06/01/22 20:00 Aspirin E.C. 81 Mg Tabec PO BID LEON Celecoxib 400 mg 06/01/22 06:00 06/01/22 09:26 Celecoxib 200 Mg Cap PO 400 mg PREOP LEON Administration Celecoxib 200 mg 06/01/22 20:00 Celecoxib 200 Mg Cap PO BID LEON Docusate Sodium 100 mg 06/01/22 09:09 Docusate Sodium 100 Mg Cap PO BID PRN PRN Constipation Hydromorphone HCl 0.5 mg 06/01/22 09:09 Hydromorphone 2 Mg/Ml Syr IVP Q2H PRN PRN Tranexamic Acid 1,000 mg/ 60 mls @ 360 mls/hr 06/01/22 06:00 Sodium Chloride IV PREOP LEON Ringer's Solution 1,000 mls @ 80 mls/hr 06/01/22 06:00 IV 06/30/22 23:59 INFUSION LEON Cefazolin Sodium/Dextrose 2 gm in 50 mls @ 100 mls/hr 06/01/22 06:00 Ancef Duplex IVPB 06/01/22 16:00 PREOP LEON Cefazolin Sodium/Dextrose 1 gm in 50 mls @ 100 mls/hr 06/01/22 10:00 Ancef Duplex IVPB 06/02/22 02:29 Q8H LEON IV Miscellaneous Supplies 1 each 06/01/22 06:00 Iv Access IV 06/30/22 23:59 DIRECTED LEON Ondansetron HCl 4 mg 06/01/22 09:09 Ondansetron 4 Mg/2 Ml Vial IVP Q6H PRN PRN Nausea Oxycodone HCl 0 mg 06/01/22 09:09 Oxycodone 5 Mg Tab PO Q3H PRN PRN Pain Pantoprazole Sodium 40 mg 06/02/22 07:30 Pantoprazole 40 Mg Tabcr PO DAILY@0730 [facility] Polyethylene Glycol 17 gm 06/01/22 09:09 Polyethylene Glycol 3350 17 Gm Packet PO BID PRN PRN Constipation Sodium Chloride 0 ml 06/01/22 06:00 Normal Saline Flush 10 Ml Syr IV 06/30/22 23:59 PRN PRN Sodium Chloride 0 ml 06/01/22 06:00 Normal Saline 10 Ml Vial IJ 06/30/22 23:59 DIRECTED PRN Sterile Water 0 ml 06/01/22 06:00 Water,Injection,Sterile 10 Ml Vial IJ 06/30/22 23:59 DIRECTED PRN PFSH Active Problems Active Problems: Problem Status Onset Code Trigger finger, right ring finger M65.341 Osteoarthritis of left hip M16.12 Diverticulosis Lichen sclerosus Hypertension Surgical History Surgical History Colonoscopy - IV Sedation (09/21/16) 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) 03/04/21 Tobacco Smoking/Tobacco Use Status: Former Tobacco Use Alcohol Alcohol Intake: current Alcohol intake frequency: a few times a week Alcohol type: wine Substance Use Substance use: Never Substance use type: does not use Prental History History 2 Para 0 Hx # Term Pregnancies Multiple births Hx # Pregnancies Ectopic pregnancies AB induced Hx Number of Living Children AB spontaneous Vital Signs and Lab Results Vital Signs Most Recent Vital Signs in EMR: Most Recent Vital Signs Temp Pulse Resp BP Pulse Ox 36.6 C 62 16 164/95 H 96 06/01/22 09:05 06/01/22 09:28 06/01/22 09:05 06/01/22 09:28 06/01/22 09:28 Lab Results Blood Type / Crossmatch: No Data to Display Complete Blood Count: White Blood Count 5.21 10^3/uL (4.4-10.8) 05/24/22 12:42 Red Blood Count 4.00 10^6/uL (3.93-5.22) 05/24/22 12:42 Hemoglobin 12.6 g/dL (11.2-15.7) 05/24/22 12:42 Hematocrit 37.7 % (36.0-46.0) 05/24/22 12:42 Platelet Count 205 10^3/uL (130-400) 05/24/22 12:42 Complete Metabolic Panel: Sodium 139 mmol/L (136-145) 05/24/22 12:42 Potassium 3.4 mmol/L (3.5-5.1) L 05/24/22 12:42 Chloride 101 mmol/L (98-107) 05/24/22 12:42 Carbon Dioxide 30.4 mmol/L (21.0-32.0) 05/24/22 12:42 BUN 13 mg/dL (7-18) 05/24/22 12:42 Creatinine 0.6 mg/dL (0.55-1.02) 05/24/22 12:42 Est GFR (CKD-EPI 2020) 95.90 (mL/min/1.73m2) 05/24/22 12:42 Calcium 9.9 mg/dL (8.5-10.1) 05/24/22 12:42 Glucose 91 mg/dL (74-106) 05/24/22 12:42 Liver Function Panel: No Data to Display Coagulation Panel: No Data to Display Cardiac Panel: No Data to Display Arterial Blood Gas: No Data to Display Venous Blood Gas: No Data to Display Pancreas Panel: No Data to Display Thyroid Panel: No Data to Display Infectious Disease: No Data to Display Blood Cultures: No Data to Display Toxicology Panel: No Data to Display Imaging and Studies Imaging and Studies Study information below may be from another EMR and interpreted by another provider. Please see original notes in EMR for more complete details. EKG Summary: 02/2021: nsr Anesthesia Assessment and Plan Anesthesia History Personal History: No History of Anesthesia Complications Family History: No Family History of Anesthesia Complications Exercise Tolerance Exercise Tolerance: Metabolic Equivalents>4 Pertinent Negatives Pertinent Negatives: No Symptoms of GERD, No Major Cardiovascular Symptoms or Complaints and No Major Pulmonary Symptoms or Complaints Cardiac & Pulmonary Exam Cardiac Exam: Normal S1/S2 Heart Sounds Pulmonary Exam: Clear Bilateral Breath Sounds Implantable Cardiac Device Does patient have a Pacemaker or an ICD?: No Airway Exam Known Difficult Airway: No Mallampati Class: 2 Mouth Opening: Normal (> 3cm) Thyromental Distance: Greater than 3 cm Neck Range of Motion: Full ROM Neck Circumference: Normal Teeth Condition: Normal Dentition ASA Classification ASA Score: ASA 2 Emergency Case?: No NPO Status NPO Status: NPO Clears >2 hours, Solids >8 hours Anesthesia Plan Resuscitation Status: Full Code Anesthesia Technique: General Anesthesia Airway Planned: Natural Airway Monitors Used: Standard Monitors
[2022-06-01] MEDS: Lactated Ringers 1,000 ML 80 ML IV (09:45)
[2022-06-01] MEDS: ceFAZolin 2 GM/50 ML BAG IVPB (10:19)
--- NOTE | 2022-06-01 11:45 | DI.RAD_ITS ---
Exam(s) XR HIP LT IN OR EXAM: XR HIP LT IN OR CLINICAL HISTORY: left total hip. TECHNIQUE: 2D digital imaging was performed. COMPARISON: Preop images FINDINGS: Fluoroscopy provided during left hip arthroplasty periods see procedure report for details. Total fluoroscopy time 29 seconds IMPRESSION: As above. Radiation exposure index: shey Ocampo= 3.7115mGy DATA REPOSITORY: RADIATION DOSE DELIVERED:
--- NOTE | 2022-06-01 12:05 | ROE_ITS ---
Date of service: 06/01/22 Time of Service: 12:05 Operative Note Operative Note DATE OF PROCEDURE: 06/01/22 PRE-OP DIAGNOSIS: Left Hip Osteoarthritis POST-OP DIAGNOSIS: same PROCEDURE: Left Anterior Total Hip Arthroplasty with Intraoperative Navigation SURGEON: Mick Perez SOAKING PITS SUPERVISOR: Lisbeth Perez ANESTHESIA TYPE: Spinal Refer to Anesthesia Record ESTIMATED BLOOD LOSS: 300 PATHOLOGY: none sent TOURNIQUET TIME: 0 COMPLICATIONS: None Patient was transported to: PACU Patient's condition: stable Implants: 1. Depuy [place] Acetabular Component, 48mm 2. Depuy Acetabular Liner, [id number] 3. Depuy Corail Standard Collared Femoral Stem, Size 12 4. Depuy Altrx Ceramic Femoral Head, Size 32+5mm Indications: I have seen Rachel in clinic for symptoms of hip arthritis, confirmed with radiographic findings. She has exhausted nonoperative methods and was having significant limitations in daily function and desired better function and less pain. I discussed the technical details of a hip replacement. I explained the risks of the procedure to include, but not limited to, bleeding, infection, pain, stiffness, fracture, damage to nerves and vessels, damage to muscles and tendons, loosening, instability, leg length inequality, need for repeat pr ocedure, blood clot and cardiopulmonary demise. Despite these risks, Rachel elected to proceed. Findings: There was significant signs of arthritis throughout the hip. Procedure Description: Rachel was greeted in the preoperative holding area where the correct side was identified and marked. The consent was reviewed with the patient and signed. The history and physical was updated. All questions were answered. She was taken back to the operating room. A spinal anesthestic was then administered. The feet were wrapped with cast padding and Coban and then placed into the boot liners and then into the boots. Care was taken to protect the skin and make sure the heels were fully down and the boots were stable. The patient was then positioned onto the HANA table. Both legs were held in a neutral position. SCDs were applied. The patient was then slid down onto a peroneal post. Prophylactic antibiotics in the form of Cefazolin were administered. 1g of Tranxemic Acid was given intravenously within 30 minutes of incision. The left leg was then prepped with Chloraprep and draped in a standard fashion. A second prep with Chloraprep was performed prior to placement of a shower-curtain type drape with Iodine impregnated skin protection. A timeout to confirm correct identity, side and site, procedure, allergies, anesthesia, and medical concerns was performed. An obliquely oriented incision was made starting lateral to the ASIS and running distal over the Tensor Fascia Jazzmine (TFL) muscle belly toward the fibular head, approximately 10cm. The skin and soft tissue was dissected sharply, through Adina?s fascia, and to the fascia of the TFL. With the fascia and superior rayshawn rder of the IT band identified, the fascia was incised with a new knife just above any perforators from the IT band. The TFL muscle belly was bluntly dissected away from the fascia and moved laterally. The fat between TFL and rectus was identified to ensure the dissection was not within the TFL. Blunt dissection created space between abductors and the capsule and retractor was placed over the lateral femoral neck. The fibers of the rectus femoris tendon were identified and these were freed from the anterior capsule. A second cobra retractor was placed around the medial femoral neck. The TFL was further retracted laterally to show the deep fascia. Careful dissection through this layer identified three main crossing vessels of the lateral femoral circumflex. These were cauterized in multiple locations and then cut without any noticeable bleeding. The TFL was further released bluntly from the deep fascia to expose anterior hip capsule and fat The Russell orthopaedic retractor was then placed beneath the TFL and against sartorius and medial soft tissues to protect and retract the soft tissues. A T-capsulotomy was then performed starting at the superior lateral acetabulum and moving distally to the intertrochanteric ridge. These capsular flaps were tagged with a No. 1 Ethibond and elevated from within. The capsular flaps were released to the shoulder of the lateral neck and to the lesser trochanter to give excellent visualization of the proximal femur. A neck osteotomy was performed using an oscillating saw based on preoperative templates. This cut started in the shoulder and of the lateral neck and exited medially. The saw was at all times directed medially to avoid injury to the greater trochanter. Gross traction was applied to the leg and the osteotomy o pened. The femoral head was removed with a corkscrew, making sure to protect the TFL on its exit. Traction was released after head removal. This was measured on the back table to determine the starting reamer size. Portions of the rectus obscuring visualization were minimally elevated off the superior acetabulum. An anterior retractor was placed over the anterior wall between capsule and labrum and attached to the Gripper retraction system. The femur was rotated to 90 degrees and medial capsule was fully released until the lesser trochanter was palpable and visible; the femur was returned to 30 degrees. A posterior retractor was placed similarly between capsule and labrum. This provided excellent visualization. The contents of the cotyloid fossa were removed with electrocautery and the labrum was removed with a knife. There was a notable floor osteophyte. There was significant chondromalacia of the superior acetabulum. Acetabular reaming began with a 44mm reamer. This first reaming was directed anterior to posterior and medial to get down to the true floor. This was inspected and reamed until the true floor was reached. The anterior retractor was then released and entry and exit was provided by traction on the capsular flaps. I then reamed sequentially up to a 47mm reamer where good fit was obtained. The larger reamers were oriented based on anatomical reference of the anterior and lateral beasley to ensure proper abduction and anteversion. Positioning and size was confirmed with the fluoroscopy. A 48mm Depuy [place] acetabular component was selected. The acetabulum was reamed around the periphery with the selected acetabular size to prevent a rim fit. The deep tissues were irrigated. The acetabular component was then impacted in a position of about 40-45 degrees of abduction and 15-20 degrees of anteversion, using the patient?s anatomy as the ultimate landmark. Fluoroscopy was used to confirm this. There was excellent reimbursement representative of the acetabular component and the inserting handle was removed. The acetabular liner, Depuy [id number] polyethylene liner, was inserted and lined up with the tines of the acetabular component. There was no soft tissue interposition. The liner was then impacted into position and confirmed to be well-seated. A portion of the valentino-articular cocktail was then injected around the acetabulum into the capsule and periosteum. This cocktail consisted of 123mg of Ropivacaine, 0.25mg of Epinephrine, 0.04mg of Clonidine, and 15mg of Ketorolac, diluted to 50cc. The leg was rotated to 120 degrees. Any remaining medial capsule was released until the lesser trochanter was easily palpable. A retractor was placed medially. The lateral capsule was further released into the shoulder to allow access to the greater trochanter. A Fowler retractor was placed over the greater trochanter which allowed the trochanter to flip in front of the capsule for excellent exposure. The leg was brought down into maximal extension and 20 degrees of adduction while ensuring there was no impingement on the acetabulum. Any remnant capsule within the trochanter was released. Piriformis and obturator externis were identified and protected. There was excellent access to the proximal femur. The lateral neck remnant was removed with a rongeur. A blunt canal probe was used to identify the canal and trajectory for later broa bridget. A box osteotome initiated the broach course. A small curved rasp and a curved curette were used to work laterally. Broaching then began with a size 8 Corail broach. This was inserted manually around the trochanter and into the canal before mallet blows. The broach was seated to a few millimeters below the cut level based on the neck cut and the preoperative template. Sequential broaching was continued with the [employer] pneumatic broaching device until a tight fit was obtained with good rotational control of the femur. A trial standard neck was inserted along with a +5 trial head. The leg was brought out of extension and adduction and then reduced with traction and internal rotation. The leg was stable anteriorly in a position of 30 degrees of extension and 90 degrees of external rotation. Fluoroscopy was used to ensure there was no fracture and the stem was seated well. Leg lengths were checked with an AP pelvis and pelvic reference points. Boomi navigation system was used to confirm appropriate positioning and leg length and offset. This demonstrated overcorrection of leg length. Once content with the desired offset and leg lengths, the leg was brought back into extension, external rotation and adduction. I advanced the broach first by going down in size and then up to a size 12, approximately 6mm. The periosteum and surrounding tissue was injected with remaining portion of the valentino-articular cocktail. The proximal femur was irrigated as well as the deep tissues. The Depuy Corail standard collared stem, size 12, was then manually inserted into the proximal femur making sure to control rotation. It was then malleted into position with light blows, giving breaks to allow bone expansion and decrease risk of fracture. The selected Depuy Altrx Ceramic Head, size 32+5mm, was then placed onto the clean and dry trunnion and secured with impaction onto the tapered fit. The leg was brought back out of extension and adduction and reduced with traction and internal rotation. Stability was confirmed with no shuck at 90 degrees of external rotation and 30 degrees of extension. No impingement through range of motion arc. Final x-ray images were obtained with fluoroscopy to confirm adequate positioning and no intraoperative fracture. The deep tissues were thoroughly irrigated with Surgiphor, betadine solution. This was allowed to sit in the wound for 3 minutes before being thoroughly irrigated out with normal saline. The capsule was then reapproximated with the previously placed Ethibond sutures. The TFL fascia was finally closed with a No. 2 Stratafix, barbed suture. Deep tissues were then reapproximated with 0 Vicryl and a running 2-0 Vicryl. The skin was closed with a running 4-0 Monocryl in a subcuticular fashion. This was reinforced with skin glue. A Mepilex silver dressing was applied. At the end of the case, all counts were correct. Rachel was transferred to the hospital bed without difficulty and suffering no apparent complication. She has a good prognosis. Physical therapy will start today and without restrictions, weight-bearing as tolerated. Aspirin 81mg BID will be used for DVT prophylaxis.
--- NOTE | 2022-06-01 12:43 | W.ANESPOSTOP ---
Postoperative Evaluation Date, Time and Location Date Performed: 06/01/22 Time Performed: 12:43 Patient Location: PACU Vital Signs Most Recent Imported Vital Signs: Most Recent Vital Signs Temp Pulse Resp BP Pulse Ox 36.5 C 64 16 120/60 94 06/01/22 12:25 06/01/22 12:30 06/01/22 12:30 06/01/22 12:30 06/01/22 12:30 Pain Score Most Recent Pain Score: Most Recent Pain Score Pain Level 0 06/01/22 12:30 Assessment Mental Status: Awake (Alert & Oriented to Patient Baseline) Airway and Respiratory Function: Patent airway with normal (patient baseline) respiratory exam Cardiovascular Function: Hemodynamically Stable Hydration Status: Adequately Hydrated Nausea & Vomiting: No Nausea or Vomiting Pain: Pt. Denies Any Pain Peripheral Nerve Block: Patient did not receive a nerve block Postoperative Comments:: Spinal not fully resolved.
[2022-06-01] MEDS: oxyCODONE 5 MG TAB PO ×2 (12:54→13:56)
--- NOTE | 2022-06-01 15:05 | IN_ITS ---
Date of service: 06/01/22 Time of Service: 03:00 PT Notes Visit Reasons: Left hip DJD Physical Therapy Day Surgery Initial Evaluation Date: 06/01/2022 Referring Doctor: SANJIV Harvey PT Orders: PT CONSULT: S/P Ortho surgery Precautions: WBAT on L LE with AD. Patient Profile/Admitting Diagnosis: Nkechi a 71-year-old female with primary osteoarthritis of the left hip and is status post left anterior total hip arthroplasty on postoperative day 0. PMHX: Medical History? Diverticulosis Hypertension Lichen sclerosus Surgical History? Colonoscopy - IV Sedation (09/21/16) 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) 03/04/21 Social History/Home Situation: Lives with at home with 2 steps to enter with rail on 1 side. Set of spiral staircase lead to bedroom. Independent with all mobility ADLs prior to surgery. Equipment Owned/DME: FWW Subjective: Reports positional pain at 4-5/10 at rest and with weight bearing. Lightheaded with intial sit at EOB, resolved later in the walk. Objective: General Observation: Mepilex Ag over surgical incision. TEDS in B legs. Mental Status: Oriented x 4 Pain: 4-5/10 pain in the right hip ROM: Right Lower Extremity: Hip flexion WFL. Hip abduction WFL. Knee flexion WFL. Ankle dorsiflexion WFL. Ankle plantarflexion WFL. Left Lower Extremity: Hip flexion WFL. Hip abduction WFL. Knee flexion WFL. Ankle dorsiflexion WFL. Ankle plantarflexion WFL. Strength: Right Lower Extremity: Hip flexors 5/5. Hip abductors 5/5. Knee flexors 5/5. Knee extensors 5/5. Ankle dorsiflexors 5/5. Ankle plantarflexors 5/5. Left Lower Extremity:Hip flexors 4/5. Hip abductors 4/5. Knee flexors 5/5. Knee extensors 4/5. Ankle dorsiflexors 5/5. Ankle plantarflexors 5/5. Sensation: Intact as to pain and light pressure in bilateral lower extremities Bed Mobility/Transfers: Supine to sit standby assist Sit to stand contact-guard assist Stand to sit standby assist Bed to chair standby assist THERA EX: Gluteal sets x 5 Supine heels slides x 5 Ankle DF/PF x 10 LAQ x 5 Seated marches x 5 Gait: Instructed patient on level surface ambulation 150 feet using front-wheel walker with step through gait pattern requiring standby assist. Reported 2-3/10 later in the walk. Stairs: Up and down while holding onto B rails with step to gait pattern without increase in pain report. Balance: Static Sitting: Normal Dynamic Sitting: Normal Static Standing: Fair Dynamic Standing: Fair Special Tests: Mobility Limitations Standardized Measure [facility] 6 clicks Basic Mobility Inpatient Short Form: Raw Score: 23? CMS Score: 11% deficit Informed Consent/Education:? Patient instructed in purpose of PT consult.? Packet containing VANCE exercise protocol has been given to patient.? Education and training on initial set of exercises that can be done at home have been completed with patient. Assessment: Rachel requires the use of a FWW for all mobility ADL performance to reduce fall risk and maximize independence at home. Patient presents with clinical signs and symptoms consistent with current/admitting diagnoses that have resulted to mobility limitations, gait instability, generalized weakness, and impairment of motor control as demonstrated by the following impairment level findings: 1.? Decreased strength to left hip major muscle groups 2.? Impaired standing balance Impairments are contributing to the following functional limitations: 1.? Inability to safely ambulate without assistive device 2.? Increase completion time for mobility ADL performance 3.? Increased fall risk Patient is assessed as a 64084 moderate complexity based on the following: History: 70-year-old female with impairment level findings, functional limitations, and past medical history as indicated above Examination: Demonstrable impairment in strength, balance, and mobility level with underlying impairments and functional limitations as documented above Presentation: Evolving Decision Makin moderate complexity Goals: N/A.? PT evaluation and 1-2 treatment sessions only for functional mobility training using recommended AD and for HEP instruction. Plan of Care/Treatment Plan: N/A.? PT evaluation and 1-2 treatment session only for functional mobility training using recommended AD and for HEP instruction. DISCHARGE RECOMMENDATIONS: Home when medically cleared by orthopedics. Recommend outpatient PT services to optimize functional mobility outcomes and facilitate return to independent community ambulation without an assistive device. TREATMENT CODE/TIME: [id number] x 20 minutes, [id number] x 10 minutes beginning at 15:05 PM. Thank you for the opportunity to participate in the care of this patient. Ana Arriaga PT, DPT, CLT [facility] [place], [place]
== END 2022-06-01 15:58 | disposition home or self-care (01) ==
PROVIDERS: PCP Internal Medicine; Visit Provider Student in an Organized Health Care Education/Training Program
PROC: (CPT 27130; principal; 2022-06-01 10:45)
DX: M16.12 Unilateral primary osteoarthritis, left hip (principal); I10 Essential (primary) hypertension; Z96.641 Presence of right artificial hip joint
CPT/HCPCS: 27130; 20985; 97162; 97530; 73501; J0690; J1100; J2250; J2405

== ENCOUNTER 2022-06-14 13:53 | Outpatient (CLI) | payer BC, SELFPAY ==
--- NOTE | 2022-06-14 13:15 | DI.RAD_ITS ---
Exam(s) XR HIP LT COMPLETE AP PELVIS EXAM: XR HIP LT COMPLETE AP PELVIS CLINICAL HISTORY: 1st post op L VANCE. TECHNIQUE: 2D digital imaging was performed. Two images were obtained. AP, lateral and oblique view s were obtained. COMPARISON: CR XR HIP RT COMPLETE AP PELVIS from 01/11/2022 XA XR HIP LT IN OR from 06/01/2022 FINDINGS: BONES: There are stable post operative changes present. No fracture or dislocation. JOINTS: The orthopedic hardware is in good position. No evidence of hardware loosening. SOFT TISSUE: Normal. IMPRESSION: Stable postoperative changes. DATA REPOSITORY: RADIATION DOSE DELIVERED:
== END 2022-06-14 13:54 | disposition home or self-care (01) ==
LOC: DIORS 13:54
PROVIDERS: PCP Internal Medicine; Referring Provider Internal Medicine; Visit Provider Student in an Organized Health Care Education/Training Program
DX: Z96.642 Presence of left artificial hip joint (principal); Z47.1 Aftercare following joint replacement surgery
CPT/HCPCS: 73502

== ENCOUNTER 2022-09-30 12:06 | Outpatient (REF) | payer BC, SELFPAY ==
[2022-09-30 14:53] LABS: Potassium 4.3 mmol/L (3.5-5.1)
== END 2022-09-30 12:07 | disposition home or self-care (01) ==
LOC: NCHCN 12:06
PROVIDERS: PCP Internal Medicine; Visit Provider Internal Medicine
DX: I10 Essential (primary) hypertension (principal); E87.6 Hypokalemia; M85.88 Other specified disorders of bone density and structure, other site; F41.8 Other specified anxiety disorders
CPT/HCPCS: 84132

== ENCOUNTER → 2023-03-10 02:16 | Outpatient (CLI) | payer BC, SELFPAY ==
--- NOTE | 2023-03-10 12:15 | DI.MAMMO_ITS ---
Exam(s) MAMMO SCREENING EXAM: MAMMO SCREENING CLINICAL HISTORY: screening TECHNIQUE: Mammograms were interpreted according to the usual protocol including computer analysis w [employer] CAD system, tomosynthesis and C-view imaging. COMPARISON: 2014 through 2021 FINDINGS: The breasts are composed of scattered fibroglandular densities, Breast Density category B. No suspicious masses or suspicious microcalcifications are seen. No skin thickening or abnormal axillary lymph nodes are seen. There has been no significant change from prior exams. IMPRESSION: BI-RADS Category 1, Negative mammogram Yearly screening mammography is recommended. Breast Density - Category B, scattered fibroglandular densities. A negative radiographic report should not delay biopsy if a dominant or clinically suspicious mass is present. Up to ten percent of cancers are not identified on mammography. A negative report may reinforce clinical impression. Adenosis and dense breasts may obscure an underlying neoplasm. False positive reports average 6 to 10%. Patient will receive a letter notifying them of these results.
== END ==
PROVIDERS: PCP Internal Medicine; Visit Provider Nurse Practitioner Women's Health
DX: Z12.31 Encounter for screening mammogram for malignant neoplasm of breast (principal)
CPT/HCPCS: 77063; 77067

== ENCOUNTER 2023-06-02 12:18 | Outpatient (CLI) | payer BC, SELFPAY ==
--- NOTE | 2023-06-02 09:45 | DI.RAD_ITS ---
Exam(s) XR HIP LT AP LAT ONLY EXAM: XR HIP LT AP LAT ONLY CLINICAL HISTORY: ANNUAL F/U L VANCE. TECHNIQUE: 2D digital imaging was performed. Two views. COMPARISON: CR XR HIP LT COMPLETE AP PELVIS from 06/14/2022 FINDINGS: BONES: No acute fracture is present. No bony destructive lesion is seen. JOINTS: No dislocation present. There has been no change in the left hip prosthesis. SOFT TISSUE: Normal. IMPRESSION: Stable appearance of left hip prosthesis. DATA REPOSITORY: RADIATION DOSE DELIVERED:
== END 2023-06-02 12:19 | disposition home or self-care (01) ==
LOC: DIORS 12:19
PROVIDERS: PCP Internal Medicine; Visit Provider Student in an Organized Health Care Education/Training Program
DX: Z96.642 Presence of left artificial hip joint (principal); Z47.1 Aftercare following joint replacement surgery
CPT/HCPCS: 73502

== ENCOUNTER 2023-10-21 15:00 | Outpatient (REF) | payer BC, SELFPAY ==
[2023-10-21 14:41] LABS: Abs Immature Grans 0.01 10^3/uL (0.0-0.06); Absolute Basophil Count 0.04 10^3/uL (0.0-0.2); Absolute Eosinophil Count 0.22 10^3/uL (0.0-0.7); Absolute Lymphocyte Count 0.78 10^3/uL (1.2-3.4); Absolute Monocyte Count 0.52 10^3/uL (0.1-0.8); Absolute Neutrophil Count 1.78 10^3/uL (1.2-6.7); Basophils % 1.2 %; Eosinophils % 6.6 %; HCT 39.5 % (36.0-46.0); HGB 13.3 g/dL (11.2-15.7); Immature Grans % 0.3 %; Lymphocytes % 23.3 %; MCH 32.4 pg (27.0-33.0); MCHC 33.7 % (32.0-36.0); MCV 96 fL (80-95); Monocytes % 15.5 %; Neutrophils % 53.1 %; Platelet Count 236 10^3/uL (130-400); RBC 4.11 10^6/uL (3.93-5.22); RDW 11.9 % (11.7-14.6); RDW-SD 42.5 fL; WBC 3.35 10^3/uL (4.4-10.8)
[2023-10-21 14:54] LABS: ALT 40 U/L (14-59); AST 27 U/L (15-37); Albumin 3.9 g/dL (3.4-5.0); Alkaline Phosphatase 80 U/L (46-116); Anion Gap 7.5 mmol/L (3-11); BUN 15 mg/dL (7-18); Bilirubin, Total 0.4 mg/dL (0.2-1.0); CO2 30.5 mmol/L (21.0-32.0); CREATININE 0.5 mg/dL (0.55-1.02); Calcium 9.1 mg/dL (8.5-10.1); Calculated LDL 150 mg/dL (<100); Chloride 105 mmol/L (98-107); Cholesterol 228 mg/dL (<200); Estimated GFR 98.97 (mL/min/1.73m2); Glucose 97 mg/dL (74-106); HDL Cholesterol 63 mg/dL (40-60); Sodium 143 mmol/L (136-145); Total Protein 7.6 g/dL (6.4-8.2); Triglyceride 75 mg/dL (<150)
== END 2023-10-21 15:01 | disposition home or self-care (01) ==
LOC: NCHCN 15:00
PROVIDERS: PCP Internal Medicine; Visit Provider Family Medicine
DX: I10 Essential (primary) hypertension (principal); E78.5 Hyperlipidemia, unspecified
CPT/HCPCS: 80053; 80061; 85025

== ENCOUNTER 2024-03-22 02:16 | Outpatient (CLI) | payer MEDICARE, BC, SELFPAY ==
--- NOTE | 2024-03-22 13:01 | DI.MAMMO_ITS ---
Exam(s) MAMMO SCREENING EXAM: MAMMO SCREENING CLINICAL HISTORY: screening TECHNIQUE: Bilateral full field digital CC and MLO mammographic images were obtained with 3D tomosyn thesis and utilizing computer aided detection (CAD). COMPARISON: Available for comparison. FINDINGS: Masses/Architectural Distortion: None seen. Microcalcifications: No suspicious pleomorphic-type are seen. Skin Thickening/Nipple Retraction: None. IMPRESSION: 1. No significant interval change with no specific features of malignancy noted. 2. Unless there is more urgent need, screening mammography is recommended, as per [employer] guidelines. BI-RADS Category 1 - Negative Breast Density - Category B - Scattered areas of fibroglandular density Breast density category C or D implies that the patient has dense breast tissue. Dense breast tissue is very common and is not abnormal but dense breast tissue can make it harder to find cancer on a ma mmogram. Also, dense breast tissue may increase their breast cancer risk. This information about the result of the mammogram report was provided to the patient to raise their awareness. Use this report when you speak with the patient about their risks for breast cancer, which includes their family hist ory. At that time, you may recommend for more screening tests (Ultrasound or MRI) as they might be us eful based on their risk. A negative radiographic report should not delay biopsy if a dominant or clinically suspicious mass is present. Up to ten percent of cancers are not identified on mammography. A negative report may reinforce clinical impression. Adenosis and dense breasts may obscure an underlying neoplasm. False positive reports average 6 to 10%. Patient will receive a letter notifying them of these results.
== END 2024-03-22 02:36 ==
PROVIDERS: PCP Internal Medicine; Visit Provider Nurse Practitioner Women's Health
DX: Z12.31 Encounter for screening mammogram for malignant neoplasm of breast (principal); R92.323 Mammographic fibroglandular density, bilateral breasts
CPT/HCPCS: 77063; 77067

== ENCOUNTER 2024-09-10 16:16 | Outpatient (REF) | payer MEDICARE, BC, SELFPAY | END 2024-09-10 16:17 | disposition home or self-care (01) | LOC: LBN 16:16 | PROVIDERS: PCP Internal Medicine; Visit Provider Nurse Practitioner Family | DX: N30.01 Acute cystitis with hematuria (principal) | CPT/HCPCS: 87086 ==

== ENCOUNTER 2024-11-01 09:08 | Outpatient (REF) | payer MEDICARE, BC, SELFPAY ==
[2024-11-01 15:45] LABS: ALT 44 U/L (14-59); AST 26 U/L (15-37); Alkaline Phosphatase 66 U/L (46-116); Anion Gap 4.8 mmol/L (3-11); BUN 15 mg/dL (7-18); Bilirubin, Total 0.5 mg/dL (0.2-1.0); CO2 32.2 mmol/L (21.0-32.0); CREATININE 0.5 mg/dL (0.55-1.02); Calcium 9.3 mg/dL (8.5-10.1); Calculated LDL 172 mg/dL (<100); Chloride 103 mmol/L (98-107); Cholesterol 257 mg/dL (<200); Estimated GFR 98.36 (mL/min/1.73m2); Glucose 97 mg/dL (74-106); HDL Cholesterol 65 mg/dL (>or=50); Potassium 4.4 mmol/L (3.5-5.1); Sodium 140 mmol/L (136-145); Total Protein 7.8 g/dL (6.4-8.2); Triglyceride 102 mg/dL (<150)
== END 2024-11-01 09:09 | disposition home or self-care (01) ==
LOC: NCHCN 09:08
PROVIDERS: PCP Internal Medicine; Visit Provider Family Medicine
DX: E78.5 Hyperlipidemia, unspecified (principal)
CPT/HCPCS: 80053; 80061

== ENCOUNTER 2024-11-07 00:12 | Outpatient (CLI) | payer MEDICARE, BC, SELFPAY ==
--- NOTE | 2024-11-07 15:12 | DI.CTLCSR_ITS ---
Exam(s) CT CHEST LUNG CANCER SCREEN EXAM: CT CHEST LUNG CANCER SCREEN CLINICAL HISTORY: Former smoker Z87.891 screening TECHNIQUE: Imaging Protocol: Axial computed tomography images with coronal and sagittal reformatted images were created and reviewed. Lung Computer Aided Detection (CAD) was utilized. COMPARISON: There are no prior examinations for comparison. FINDINGS: Tracheobronchial tree: Patent where visualized. No bronchiectasis. Pulmonary parenchyma: No consolidation or dominant measurable mass. No architectural distortion. Lung Nodules: There are no suspicious pulmonary nodules. Mediastinum and Krissy: No dominant adenopathy or fluid collection. The esophagus is unremarkable. Thyroid gland: Unremarkable. Lymph nodes: Unremarkable. Pleura: No effusion or pneumothorax. Heart: The heart is not dilated. No coronary artery calcifications are seen. No pericardial effusion. Aorta: Thoracic aorta non-dilated.Atherosclerotic calcification is present. Upper abdomen: Gallstones are present. Soft Tissues: Unremarkable. Bones: Within normal limits. IMPRESSION: There are no suspicious pulmonary nodules. Lung RADS Cat 1 - Negative: No nodules and definitely benign nodules Lung-RADS 1.0 CATEGORIES: Category 0 - Prior chest CT exam(s) being located for comparison. Category 1 - Annual screening in 12 months. No nodules or definitely benign nodules. Category 2 - Annual screening in 12 months. Benign appearance. Nodules with low likelihood of becoming active cancer. Category 3 - 6-month follow-up. Probably benign. Short-term follow-up suggested. Nodules with low likelihood of becoming active cancer. Category 4A - 3-month follow-up and CT/PET if >8 mm in size. Suspicious finding. Findings which require additional testing. Category 4B - Findings which require additional testing and tissue sampling. Suspicious finding. Category 4X - Category 3 or 4 nodules with additional features or imaging findings that increases the suspicion of malignancy. Modifier S- Potentially clinically significant finding. (Non lung cancer) RADIATION DOSE DELIVERED: Total DLP Total DLP DATA REPOSITORY: All CT scans at this facility are submitted to the National Radiology Data Registry (NRDR) Dose Index Registry (DIR) with the [employer] (ACR). RADIATION OPTIMIZATION: All CT scans at this facility use at least one of these dose optimization techniques: automated exposure control; mA and/or kV adjustment per patient size (includes targeted exams where dose is matched to clinical indication); or iterative reconstruction.
== END 2024-11-07 00:32 ==
PROVIDERS: PCP Internal Medicine; Visit Provider Family Medicine
DX: Z12.2 Encounter for screening for malignant neoplasm of respiratory organs (principal); Z87.891 Personal history of nicotine dependence
CPT/HCPCS: 71271

== ENCOUNTER 2024-12-25 13:47 | Outpatient (REF) | payer MEDICARE, BC, SELFPAY ==
[2024-12-25 16:42] LABS: ALT 45 U/L (14-59); AST 23 U/L (15-37)
== END 2024-12-25 13:48 | disposition home or self-care (01) ==
LOC: NCHCN 13:47
PROVIDERS: PCP Family Medicine; Visit Provider Family Medicine
DX: E78.5 Hyperlipidemia, unspecified (principal)
CPT/HCPCS: 84450; 84460

== ENCOUNTER → 2025-02-28 08:38 | Outpatient (BNVA) | payer MEDICARE, BC, SELFPAY | PROVIDERS: PCP Family Medicine; Referring Provider Family Medicine; Visit Provider Physician Assistant | DX: M65.351 Trigger finger, right little finger (principal) | CPT/HCPCS: 99213 ==

== ENCOUNTER → 2025-03-26 00:08 | Outpatient (CLI) | payer MEDICARE, BC, SELFPAY ==
--- NOTE | 2025-03-26 | DI.MAMMO_ITS ---
Exam(s) MAMMO SCREENING EXAM: MAMMO SCREENING CLINICAL HISTORY: SCREENING, Z12.39. TECHNIQUE: Bilateral full field digital CC and MLO mammographic images were obtained with 3D tomosynthesis and utilizing computer aided detection (CAD). COMPARISON: Prior mammograms were reviewed. FINDINGS: No new significant findings in the right breast. The left breast there is an asymmetric density-possible nodule measuring 6 x 6 mm located 3.5 cm in from the nipple on the CC view, slightly lateral of center. There are no malignant-appearing microcalcification groups is region or elsewhere in either breast. There is no significant architectural distortion nor skin thickening-retraction. IMPRESSION: 1. No radiographic evidence of malignancy in right breast. 2. Possible left breast nodule as described above. Spot compression view and breast ultrasound recommended. BI-RADS Category 0 - Incomplete: Need additional imaging evaluation Breast Density - Category B - There are scattered areas of fibroglandular density. Breast density Category C or D implies that the patient has dense breast tissue. Dense breast tissue can make it harder to find cancer on a mammogram. Dense breast tissue is also associated with an increased risk of breast cancer. This information about the result of the mammogram report was provided to the patient to raise their awareness. Use this report when you speak with the patient about their risks for breast cancer, which includes their family history. At that time, you may recommend additional screening tests (Ultrasound or MRI) as these tests may add significant information. A negative radiographic report should not delay biopsy if a dominant or clinically suspicious mass is present. Up to ten percent of cancers are not identified on mammography. A negative report may reinforce clinical impression. Adenosis and dense breasts may obscure an underlying neoplasm. False positive reports average 6 to 10%. Patient will receive a letter notifying them of these results.
== END ==
LOC: DI 00:08
PROVIDERS: PCP Family Medicine; Visit Provider Family Medicine
DX: Z12.31 Encounter for screening mammogram for malignant neoplasm of breast (principal)
CPT/HCPCS: 77063; 77067

== ENCOUNTER → 2025-04-01 01:33 | Outpatient (CLI) | payer MEDICARE, BC, SELFPAY ==
--- NOTE | 2025-04-01 | DI.MAMMO_ITS ---
Exam(s) MG MAMMO SCREEN CALL BACK UNI US BREAST LT LIMITED EXAM: MG MAMMO SCREEN CALL BACK UNI CLINICAL HISTORY: R92.8 LT breast asymmetric density-possible nodule 6x6 located 3.5 cm in. TECHNIQUE: Craniocaudal spot compression digital Mammography views of the left breast followed by Tomosynthesis and left breast ultrasound. COMPARISON: Exams from 2014 through 2023 MG MG MAMMO SCREENING from 03/26/2025 US US BREAST LT LIMITED from 04/01/2025 FINDINGS: Mammography/Tomosynthesis: Masses/Architectural Distortion: None seen. Microcalcifictions: No suspicious pleomorphic-type are seen. Skin Thickening/Nipple Retraction: None. Left breast US: Echotexture: Normal appearance of the glandular tissue. Shadowing: No suspicious foci. Cyst: None. Solid lesions: None seen. Ductal dilation: None. IMPRESSION: 1. No evidence of malignancy is noted. 2. Unless there is more urgent need, follow-up screening mammography is recommended, as per [employer] guidelines. 3. The findings were discussed with the patient on the date of the examination. BI-RADS Category 1 - Negative Breast Density - Category B - There are scattered areas of fibroglandular density. Breast density Category C or D implies that the patient has dense breast tissue. Dense breast tissue can make it harder to find cancer on a mammogram. Dense breast tissue is also associated with an increased risk of breast cancer. This information about the result of the mammogram report was provided to the patient to raise their awareness. Use this report when you speak with the patient about their risks for breast cancer, which includes their family history. At that time, you may recommend additional screening tests (Ultrasound or MRI) as these tests may add significant information. A negative radiographic report should not delay biopsy if a dominant or clinically suspicious mass is present. Up to ten percent of cancers are not identified on mammography. A negative report may reinforce clinical impression. Adenosis and dense breasts may obscure an underlying neoplasm. False positive reports average 6 to 10%. Patient will receive a letter notifying them of these results.
== END ==
LOC: DI 01:33
PROVIDERS: PCP Family Medicine; Visit Provider Family Medicine
DX: R92.8 Other abnormal and inconclusive findings on diagnostic imaging of breast (principal); Z12.31 Encounter for screening mammogram for malignant neoplasm of breast
CPT/HCPCS: 76642; 77063; 77067